=== PATIENT | male | born 1985 | race Caucasian/White ===

== ENCOUNTER 2025-04-23 09:23 | Emergency (ER) | payer MEDICAID, SELFPAY ==
[2025-04-23 09:33] VITALS: BP 131/82; PULSE 85; TEMP 36.7; O2SAT 98; BMI 31.0
--- NOTE | 2025-04-23 10:02 | ED_ITS ---
HPI - Male Genitourinary 2 General: Chief complaint: Urogenital-Male Stated complaint: Lt low Abd pain Time Seen by Provider: 04/23/25 09:46 Source: patient Mode of arrival: ambulatory Limitations: no limitations History of Present Illness: 39-year-old male states that states has been having left flank pain that radiates to his groin since Sunday. States he had seen at [facility] and had a CT scan that showed a 2 mm kidney stone. He states that his pain is worsened today sharp in nature rates it a 9 out of 10 he denies any vomiting denies any diarrhea denies any fevers. Denies any worse improved factors Related Data Previous Rx's ?Medication ?Instructions ?Recorded hydrocodone 5 mg-acetaminophen 325 1 tab PO Q8H PRN pa in #14 tabs 04/23/25 mg tablet naproxen 500 mg tablet (Naprosyn) 500 mg PO BID PRN pa in #20 tabs 04/23/25 ondansetron 4 mg disintegrating 4 mg PO Q6H PRN nausea and 04/23/25 tablet vomiting #14 tabs Allergies Allergy/AdvReac Type Severity Reaction Status Date / Time Penicillins Allergy Unknown Verified 04/23/25 09:39 Physical Exam 2 Const: COMMON NORMALS: no acute distress, patient oriented x3 and healthy appearing HENMT: COMMON NORMALS: normocephalic and atraumatic HEAD & SCALP: n ormocephalic and atraumatic Neck/C-Spine: COMMON NORMALS: full ROM and supple Chest: COMMONS NORMALS: normal inspection of the chest Resp: COMMON NORMALS: normal respiratory effort Cardio: COMMON NORMALS: regular rate and regular rhythm RATE: regular rate RHYTHM: regular rhythm GI: COMMON NORMALS: Normal to inspection, nondistended, normoactive bowel sounds present, Soft to palpation, non-tender and no masses PALPATION: Yes Soft to palpation Extremity: COMMON NORMALS: normal to inspection and full ROM Neuro: COMMON NORMALS: patient oriented x3, moves all extremities and no focal motor deficits Psych: COMMON NORMALS: mental status grossly normal, Normal thought process present and cooperative THOUGHT PROCESS: Normal thought process present Skin: COMMON NORMALS: no rashes or lesions noted and no wounds GENERAL SKIN EXAM: no rashes or lesions noted Course 2 Vital Signs: Vital signs: Vital Signs Temperature 98.1 F 04/23/25 09:33 Pulse Rate 89 12/11/25 10:22 Blood Pressure 130/90 04/23/25 10:22 Pulse Oximetry 97 04/23/25 10:22 Oxygen Delivery Me thod Room Air 04/23/25 10:22 MDM - Male Medical Decision Making Patient presents with flank pain and some hematuria likely pain is from his kidney stone. Differential included pyelonephritis urinalysis showed no signs of UTI white count kidney function here is normal no significant abnormalities on lab. Patient's pain is resolved here after Toradol he is to follow-up with urology will prescribe him hydrocodone and Zofran he is to return if worsening he understands agrees to plan Medical Records I reviewed the patient's medical records. Lab Data I reviewed the patient's lab results. 04/23/25 10:03 04/23/25 10:03 Laboratory Results WBC 8.54 10^3/uL (3.29-11.43) 04/23/25 10:03 RBC 4.35 10^6/uL (3.85-5.65) 04/23/25 10:03 Hgb 13.20 g/dL (11.27-16.99) 04/23/25 10:03 Hct 38.5 % (37-53) 04/23/25 10:03 MCV 88.5 fl (82-101) 04/23/25 10:03 MCH 30.3 pg (27-33) 04/23/25 10:03 MCHC 34.3 g/dL (30-55) 04/23/25 10:03 RDW 12.0 % (12.1-15.1) L 04/23/25 10:03 Plt Count 242 10^3/cmm (157-399) 04/23/25 10:03 MPV 8.7 fL (7.4-10.4) 04/23/25 10:03 Neut % (Auto) 71.8 % 04/23/25 10:03 Lymph % (Auto) 18.7 % 04/23/25 10:03 [place] % (Auto) 8.5 % 04/23/25 10:03 Eos % (Auto) 0.4 % 04/23/25 10:03 Baso % (Auto) 0.2 % 04/23/25 10:03 Neut # (Auto) 6.13 10^3/uL (1.8-7.7) 04/23/25 10:03 Lymph # (Auto) 1.6 10^3/uL (0.8-4.8) 04/23/25 10:03 [place] # (Auto) 0.7 10^3/uL (0.2-0.9) 04/23/25 10:03 Eos # (Auto) 0.0 10^3/uL (0.0-0.8) 04/23/25 10:03 Baso # (Auto) 0.0 10^3/uL (0.0-0.1) 04/23/25 10:03 Nucleated RBC % (auto) 0 % 04/23/25 10:03 Nucleated RBCs # 0.0 /100WBC 04/23/25 10:03 Sodium 135 mmol/L (136-145) L 04/23/25 10:03 Potassium 4.3 mmol/L (3.5-5.1) 04/23/25 10:03 Chloride 98 mmol/L (98-107) 04/23/25 10:03 Carbon Dioxide 24 mmol/L (22-29) 04/23/25 10:03 Anion Gap 17.3 (5-19) 04/23/25 10:03 BUN 15 mg/dL (6-20) 04/23/25 10:03 Creatinine 1.6 mg/dL (0.7-1.2) H 04/23/25 10:03 GFR Calculation 48.4 mL/min (90-130) L 04/23/25 10:03 Glucose 112 mg/dL (65-115) 04/23/25 10:03 Calculated Osmolality 282 mOsm/kg (285-295) L 04/23/25 10:03 Calcium 9.0 mg/dL (8.5-10.5) 04/23/25 10:03 Total Bilirubin 0.6 mg/dL (0.15-1.2) 04/23/25 10:03 AST 18 U/L (0-40) 04/23/25 10:03 ALT 17 U/L (0-41) 04/23/25 10:03 Alkaline Phosphatase 72 U/L (40-130) 04/23/25 10:03 Total Protein 7.9 g/dL (6.6-8.7) 04/23/25 10:03 Albumin 4.4 g/dL (3.5-5.2) 04/23/25 10:03 Globulin 3.5 g/dL (1.3-4.6) 04/23/25 10:03 Lipase 10 U/L (13-60) L 04/23/25 10:03 Urine Color Yellow (Yellow) 04/23/25 09:51 Urine Appearance Clear (CLEAR) 04/23/25 09:51 Urine pH 6.0 (5-7) 04/23/25 09:51 Ur Specific [place] 1.007 (1.005-1.030) 04/23/25 09:51 Urine Protein Negative (Negative) 04/23/25 09:51 Urine Glucose (UA) Negative (Normal) 04/23/25 09:51 Urine Ketones Negative (Negative) 04/23/25 09:51 Urine Blood 2+ (Negative) A 04/23/25 09:51 Urine Nitrate Negative (Negative) 04/23/25 09:51 Urine Bilirubin Negative (Negative) 04/23/25 09:51 Urine Urobilinogen 0.2 mg/dL (Negative) 04/23/25 09:51 Ur Leukocyte Esterase Negative (Negative) 04/23/25 09:51 Urine RBC 3-5 /hpf (0-2) 04/23/25 09:51 Urine WBC 0-5 /hpf (0-5) 04/23/25 09:51 Ur Squamous Epith Cells 0-5 /hpf (0-5) 04/23/25 09:51 Amorphous Sediment Not Reportable 04/23/25 09:51 Urine Bacteria None seen /hpf (NONE) 04/23/25 09:51 Hyaline Casts 0-4 /lpf H 04/23/25 09:51 No radiology studies performed this visit Discharge Plan Discharge Patient Disposition: Home Clinical Impression: Kidney stone Condition: Stable Prescriptions: New hydrocodone-acetaminophen 5-325 mg tablet 1 tab PO Q8H PRN (Reason: pain) Qty: 14 0RF ondansetron 4 mg tablet,disintegrating 4 mg PO Q6H PRN (Reason: nausea and vomiting) Qty: 14 0RF naproxen [Naprosyn] 500 mg tablet 500 mg PO BID PRN (Reason: pain) Qty: 20 0RF Discharge Orders: Discharge ED (Routine); Ordered 04/23/25 Ordered By: Ehsan Royal Discharge Diet: Advance as tolerated Discharge Activity: Resume usual activity Patient Instructions: Kidney Stones (ED), Opioid Safety Print Language: Kenyan Coding Level of Care Code ED [employer] Fruit for Dany Edmonds
[2025-04-23 10:12] LABS: Hematocrit 38.5 % (37-53); Hemoglobin 13.20 g/dL (11.27-16.99); Mean Corpuscular HGB Conc 34.3 g/dL (30-55); Mean Corpuscular Hemoglobin 30.3 pg (27-33); Mean Corpuscular Volume 88.5 fl (82-101); Nucleated Red Blood Cells % 0 %; Platelet Count 242 10^3/cmm (157-399); Red Blood Count 4.35 10^6/uL (3.85-5.65); White Blood Count 8.54 10^3/uL (3.29-11.43)
[2025-04-23] MEDS: ondansetron 2 mg/ML SDV 2 mL 4 MG IVP (10:19)
[2025-04-23 10:22] VITALS: BP 130/90; PULSE 89; O2SAT 97
[2025-04-23 10:28] LABS: Glucose Urine UA Negative (Normal); Nitrate Urine Negative (Negative); Specific Gravity, Urine 1.007 (1.005-1.030)
[2025-04-23 10:32] LABS: Alanine Aminotransferase 17 U/L (0-41); Albumin Level 4.4 g/dL (3.5-5.2); Alkaline Phosphatase 72 U/L (40-130); Anion Gap 17.3 (5-19); Aspartate Amino Transferase 18 U/L (0-40); Blood Urea Nitrogen 15 mg/dL (6-20); Calcium 9.0 mg/dL (8.5-10.5); Carbon Dioxide 24 mmol/L (22-29); Chloride 98 mmol/L (98-107); Globulin 3.5 g/dL (1.3-4.6); Glucose 112 mg/dL (65-115); Lipase 10 U/L (13-60); Osmolality Calculated 282 mOsm/kg (285-295); Potassium 4.3 mmol/L (3.5-5.1); Sodium 135 mmol/L (136-145); Total Protein 7.9 g/dL (6.6-8.7)
[2025-04-23 10:33] LABS: Add Urine Microscopic? YES
[2025-04-23 11:01] VITALS: BP 123/79; PULSE 79; O2SAT 99
--- NOTE | 2025-04-23 15:44 | DCPLANNER ---
faxed outpatient referral to [facility]
== END 2025-04-23 11:03 | disposition home or self-care (01) ==
PROVIDERS: Emergency Provider Emergency Medicine
DX: N20.0 Calculus of kidney (principal)
CPT/HCPCS: 36415; 80053; 81001; 83690; 85025; 96374; 96375; 99284; J1885; J2405; J7030